=== PATIENT | female | born 1970 | race Caucasian/White ===

== ENCOUNTER 2016-03-13 06:32 | Inpatient (IN) | payer OTHER ==
[~2016-03-13] VITALS: Ht 147.3 cm; Wt 68.4 kg
[~2016-03-13 06:32] MED LIST: AMBIEN5 M1 PO; ATIVAN0.5 MG PO; ATIVAN1 MG PO; ATROVENT 00.5 MG/2.5 IH; BP PO; BREO ELLIPTA I1 EACH IH; DELTASONE20 M1 PO; DOXYCYCLINE HY100 M3 PO; DUONEB 2.5-0.5 M3 ML IH; FLEXERIL10 MG PO; HYDROCHLOROTHIA25 MG PO; KLONOPIN2 MG PO; LEVOFLOXACIN750 MG PO; LISINOPRIL10 MG PO; MOTRIN800 MG PO; NICOTINE PATCH1 EAC2 TD; PERCOCET 10-321 EACH PO; PERCOCET 10/1 TABLET PO; PREDNISONE10 M1 PO; PREDNISONE10 M2 PO; PREDNISONE20 MG PO; PROAIR HFA8.5 GM IH; SPIRIVA RESPIMAT4 GM IH; SPIRIVA1 INHALATI IH; ZITHROMAX500 MG PO
[2016-03-13 07:31] LABS: MCH 30.9 PG (29.0-34.0); MCHC 32.2 G/DL (30.0-36.0); MCV 95.7 FL (83-99); MEAN PLAT.VOLUME 10.8 uM^3 (9.5-12.4); PLATELET COUNT 172 K/uL (156-360); RBC DIS.WIDTH-CV 14.3 % (11.8-14.6); RBC DIS.WIDTH-SD 48.4 % (39-53); WHITE BLOOD COUNT 10.5 K/uL (4.1-10.2)
[2016-03-13 08:13] LABS: ANION GAP 6 MEQ/L (2-14); CHLORIDE 99 MEQ/L (99-109); GFR ESTIMATE (CALCULATED) > 59 mL/min/; GLUCOSE 112 mg/dL (70-99); POTASSIUM 4.1 MEQ/L (3.7-5.4); SAMPLE HEMOLYSIS CHECK 0; SAMPLE ICTERIC CHECK 0; SAMPLE LIPEMIA CHECK 0; SODIUM 142 MEQ/L (136-147); UREA NITROGEN (BUN) 12 mg/dL (9-23)
[2016-03-13 08:14] LABS: TROP-I INTERPRETATION NEGATIVE; TROPONIN-I < 0.01 ng/mL (0.0-0.30)
[2016-03-13] MEDS ORDERED: SPIRIVA1 INHALATI IH (10:37)
[2016-03-13] MEDS ORDERED: OXYCODONE HCL30 MG PO (10:38)
[2016-03-13] MEDS ORDERED: DUONEB 2.5-0.5 M3 ML AEROSOL (10:39)
[2016-03-13 13:09] VITALS: BP 131/75
[2016-03-13 21:10] VITALS: BP 139/77
[2016-03-14] VITALS: BP 127/76
[2016-03-14 05:54] LABS: MCH 30.3 PG (29.0-34.0); MCHC 31.4 G/DL (30.0-36.0); MCV 96.6 FL (83-99); MEAN PLAT.VOLUME 10.3 uM^3 (9.5-12.4); PLATELET COUNT 180 K/uL (156-360); RBC DIS.WIDTH-CV 14.2 % (11.8-14.6); RBC DIS.WIDTH-SD 50.3 % (39-53); RED BLOOD COUNT 4.45 M/uL (3.80-5.20)
[2016-03-14 06:21] LABS: ANION GAP 9 MEQ/L (2-14); CHLORIDE 100 MEQ/L (99-109); GFR ESTIMATE (CALCULATED) > 59 mL/min/; GLUCOSE 118 mg/dL (70-99); POTASSIUM 3.9 MEQ/L (3.7-5.4); SAMPLE HEMOLYSIS CHECK 0; SAMPLE ICTERIC CHECK 0; SAMPLE LIPEMIA CHECK 0; SODIUM 142 MEQ/L (136-147); UREA NITROGEN (BUN) 14 mg/dL (9-23)
[2016-03-14 08:38] VITALS: BP 119/71
[2016-03-14 12:03] VITALS: BP 114/72
[2016-03-14 16:03] VITALS: BP 123/81
[2016-03-14 20:09] VITALS: BP 135/85
[2016-03-15] VITALS (7 sets, daily range): BP systolic 120–140; BP diastolic 61–82
[2016-03-15 07:28] LABS: EOSINOPHIL (%) 0 % (0-5); HEMATOCRIT 44.8 % (36.0-46.0); IMMATURE GRANULOCYTE (%) 0.3 % (0.0-0.7); LYMPHOCYTE COUNT 0.7 K/uL (1.0-2.8); MCH 31.5 PG (29.0-34.0); MCHC 32.4 G/DL (30.0-36.0); MCV 97.2 FL (83-99); MEAN PLAT.VOLUME 10.5 uM^3 (9.5-12.4); MONOCYTE (%) 4.2 % (3-12); MONOCYTE COUNT 0.5 K/uL (0-0.8); NEUTROPHIL (%) 90.1 % (45-76); PLATELET COUNT 194 K/uL (156-360); RBC DIS.WIDTH-CV 14.1 % (11.8-14.6); RBC DIS.WIDTH-SD 50.6 % (39-53); RED BLOOD COUNT 4.61 M/uL (3.80-5.20)
[2016-03-15 07:30] LABS: WHITE BLOOD COUNT 12.2 K/uL (4.1-10.2)
[2016-03-15 07:54] LABS: ANION GAP 9 MEQ/L (2-14); CHLORIDE 102 MEQ/L (99-109); GFR ESTIMATE (CALCULATED) > 59 mL/min/; SAMPLE HEMOLYSIS CHECK 1; SAMPLE ICTERIC CHECK 0; SAMPLE LIPEMIA CHECK 0; SODIUM 141 MEQ/L (136-147); UREA NITROGEN (BUN) 14 mg/dL (9-23)
[2016-03-15 08:02] LABS: GLUCOSE 183 mg/dL (70-99)
[2016-03-16 04:15] VITALS: BP 127/75
[2016-03-16 07:23] LABS: EOSINOPHIL (%) 0 % (0-5); HEMATOCRIT 45.6 % (36.0-46.0); IMMATURE GRANULOCYTE (%) 0.2 % (0.0-0.7); LYMPHOCYTE COUNT 0.4 K/uL (1.0-2.8); MCH 31.1 PG (29.0-34.0); MCHC 31.6 G/DL (30.0-36.0); MCV 98.5 FL (83-99); MONOCYTE COUNT 0.6 K/uL (0-0.8); NEUTROPHIL (%) 91.4 % (45-76); NEUTROPHIL COUNT 10.1 K/uL (1.8-6.4); PLATELET COUNT 185 K/uL (156-360); RBC DIS.WIDTH-CV 14.3 % (11.8-14.6); RBC DIS.WIDTH-SD 51.6 % (39-53); RED BLOOD COUNT 4.63 M/uL (3.80-5.20); WHITE BLOOD COUNT 11.1 K/uL (4.1-10.2)
[2016-03-16 08:28] VITALS: BP 142/82
[2016-03-16] MEDS ORDERED: AUGMENTIN875 MG PO (12:52)
[2016-03-16] MEDS ORDERED: PREDNISONE10 MG PO (12:52)
[2016-03-16 13:00] VITALS: BP 138/79
== END 2016-03-16 16:00 | disposition home or self-care (01) | DRG 190 ==
LOC: EME 06:32 → 5WEST 10:49 → EDOF 10:49 → 5WEST 12:35
PROVIDERS: Emergency Medicine; Family Medicine
DX: J44.0 Chronic obstructive pulmonary disease with (acute) lower respiratory infection (principal); J20.9 Acute bronchitis, unspecified; J44.1 Chronic obstructive pulmonary disease with (acute) exacerbation; J96.01 Acute respiratory failure with hypoxia; J96.02 Acute respiratory failure with hypercapnia; J98.11 Atelectasis; Z99.81 Dependence on supplemental oxygen; I10 Essential (primary) hypertension; F17.200 Nicotine dependence, unspecified, uncomplicated; E66.9 Obesity, unspecified; Z68.31 Body mass index [BMI] 31.0-31.9, adult
CPT/HCPCS: 71020; 71275; 80048; 83605; 83880; 84484; 85025; 85027; 85379; 87040; 87077; 87186; 87801; 93005; 94640; 94640 76; 94799; 99202; 99281; 99285; G0008; G0378; J0456; J0696; J1100; J1650; J2930; J7030; J7050

== ENCOUNTER 2017-04-29 04:10 | Inpatient (IN) | payer OTHER ==
[~2017-04-29] VITALS: Ht 147.3 cm; Wt 88.7 kg
[~2017-04-29 04:10] MED LIST changes: +AUGMENTIN875 MG PO; +DUONEB 2.5-0.5 M3 ML AEROSOL; +OXYCODONE HCL30 MG PO; +PREDNISONE10 MG PO
[2017-04-29 05:41] LABS: CHLORIDE 102 mEq/L (99-109); POTASSIUM 3.5 mEq/L (3.7-5.4); SODIUM 141 mEq/L (136-147)
[2017-04-29 05:43] LABS: GLUCOSE 194 mg/dL (70-99); TOTAL PROTEIN 6.9 g/dL (6.4-8.3)
[2017-04-29 05:44] LABS: HEMATOCRIT 41.1 % (36.0-46.0); HEMOGLOBIN 13.8 G/DL (11.9-15.5); MCH 30.1 PG (29.0-34.0); MCHC 33.6 G/DL (30.0-36.0); MCV 89.5 FL (83-99); PLATELET COUNT 331 K/uL (156-360); RBC DIS.WIDTH-CV 12.6 % (11.8-14.6); RBC DIS.WIDTH-SD 41.5 % (39-53); RED BLOOD COUNT 4.59 M/uL (3.80-5.20); WHITE BLOOD COUNT 15.1 K/uL (4.1-10.2)
[2017-04-29 05:45] LABS: TOTAL BILIRUBIN 0.3 mg/dL (0.0-1.0)
[2017-04-29 05:47] LABS: ALKALINE PHOSPHATASE 115 IU/L (3-129); CREATININE 0.7 mg/dL (0.6-1.3); GFR ESTIMATE (CALCULATED) > 59 mL/min/
[2017-04-29 05:48] LABS: AST (GOT) 13 IU/L (2-34); UREA NITROGEN (BUN) 9 mg/dL (9-23)
[2017-04-29 05:50] LABS: ALT (GPT) 15 IU/L (3-49)
[2017-04-29 05:51] LABS: TROP-I INTERPRETATION NEGATIVE; TROPONIN-I 0.02 ng/mL (0.0-0.30)
[2017-04-29 11:10] VITALS: BP 137/74
[2017-04-29 16:51] VITALS: BP 139/76
[2017-04-29 19:50] VITALS: BP 136/77
[2017-04-30 00:03] VITALS: BP 143/78
[2017-04-30 05:12] LABS: BASOPHIL (%) 0.1 % (0-1); EOSINOPHIL (%) 0 % (0-5); HEMATOCRIT 37.5 % (36.0-46.0); HEMOGLOBIN 12.3 G/DL (11.9-15.5); LYMPHOCYTE (%) 4.8 % (15-42); LYMPHOCYTE COUNT 0.8 K/uL (1.0-2.8); MCH 29.3 PG (29.0-34.0); MCHC 32.8 G/DL (30.0-36.0); MCV 89.3 FL (83-99); MONOCYTE (%) 3.1 % (3-12); MONOCYTE COUNT 0.5 K/uL (0-0.8); NEUTROPHIL COUNT 14.2 K/uL (1.8-6.4); PLATELET COUNT 342 K/uL (156-360); RBC DIS.WIDTH-CV 12.7 % (11.8-14.6); RBC DIS.WIDTH-SD 41.2 % (39-53); WHITE BLOOD COUNT 15.8 K/uL (4.1-10.2)
[2017-04-30 05:32] LABS: CHLORIDE 103 MEQ/L (99-109); CREATININE 0.8 MG/DL (0.6-1.3); GFR ESTIMATE (CALCULATED) > 59 mL/min/; GLUCOSE 265 mg/dL (70-99); POTASSIUM 3.4 MEQ/L (3.7-5.4); SODIUM 141 MEQ/L (136-147); UREA NITROGEN (BUN) 17 mg/dL (9-23)
[2017-04-30 08:29] VITALS: BP 137/64
[2017-04-30 16:17] VITALS: BP 138/69
[2017-05-01 00:17] VITALS: BP 160/86
[2017-05-01 06:28] LABS: BASOPHIL (%) 0.1 % (0-1); EOSINOPHIL (%) 0 % (0-5); HEMOGLOBIN 12.7 G/DL (11.9-15.5); IMMATURE GRANULOCYTE (%) 1.7 % (0.0-0.7); LYMPHOCYTE (%) 3.9 % (15-42); LYMPHOCYTE COUNT 0.9 K/uL (1.0-2.8); MCHC 32.6 G/DL (30.0-36.0); MONOCYTE (%) 2.4 % (3-12); MONOCYTE COUNT 0.5 K/uL (0-0.8); NEUTROPHIL (%) 91.9 % (45-76); NEUTROPHIL COUNT 20.4 K/uL (1.8-6.4); PLATELET COUNT 332 K/uL (156-360); RBC DIS.WIDTH-CV 13.2 % (11.8-14.6); RBC DIS.WIDTH-SD 43.8 % (39-53); RED BLOOD COUNT 4.24 M/uL (3.80-5.20); WHITE BLOOD COUNT 22.2 K/uL (4.1-10.2)
[2017-05-01 07:00] VITALS: BP 139/87
[2017-05-01 07:02] LABS: CHLORIDE 103 MEQ/L (99-109); CREATININE 0.6 MG/DL (0.6-1.3); GFR ESTIMATE (CALCULATED) > 59 mL/min/; GLUCOSE 177 mg/dL (70-99); SODIUM 140 MEQ/L (136-147); UREA NITROGEN (BUN) 17 mg/dL (9-23)
[2017-05-01 07:12] LABS: POTASSIUM 4.1 MEQ/L (3.7-5.4)
[2017-05-01 15:44] VITALS: BP 142/82
[2017-05-01 23:00] VITALS: BP 165/86
[2017-05-02 05:55] LABS: BASOPHIL (%) 0.2 % (0-1); EOSINOPHIL (%) 0 % (0-5); HEMATOCRIT 38.6 % (36.0-46.0); HEMOGLOBIN 12.4 G/DL (11.9-15.5); IMMATURE GRANULOCYTE (%) 1.5 % (0.0-0.7); LYMPHOCYTE (%) 10.4 % (15-42); LYMPHOCYTE COUNT 1.9 K/uL (1.0-2.8); MCH 29.3 PG (29.0-34.0); MCHC 32.1 G/DL (30.0-36.0); MCV 91.3 FL (83-99); MONOCYTE (%) 6.5 % (3-12); MONOCYTE COUNT 1.2 K/uL (0-0.8); NEUTROPHIL (%) 81.4 % (45-76); NEUTROPHIL COUNT 15.3 K/uL (1.8-6.4); PLATELET COUNT 284 K/uL (156-360); RBC DIS.WIDTH-CV 12.9 % (11.8-14.6); RBC DIS.WIDTH-SD 42.7 % (39-53); RED BLOOD COUNT 4.23 M/uL (3.80-5.20); WHITE BLOOD COUNT 18.7 K/uL (4.1-10.2)
[2017-05-02 06:23] LABS: CHLORIDE 103 MEQ/L (99-109); CREATININE 0.7 MG/DL (0.6-1.3); GFR ESTIMATE (CALCULATED) > 59 mL/min/; POTASSIUM 3.6 MEQ/L (3.7-5.4); SODIUM 139 MEQ/L (136-147); UREA NITROGEN (BUN) 21 mg/dL (9-23)
[2017-05-02 06:24] LABS: GLUCOSE 111 mg/dL (70-99)
[2017-05-02 06:31] VITALS: BP 142/85
[2017-05-02 07:12] VITALS: BP 133/76
[2017-05-02 11:22] VITALS: BP 142/74
[2017-05-02] MEDS ORDERED: LEVAQUIN750 MG PO (12:50)
[2017-05-02] MEDS ORDERED: PREDNISONE10 MG PO (12:50)
== END 2017-05-02 14:09 | disposition home or self-care (01) | DRG 194 ==
LOC: EME → EDBD 04:10 → EDOF 07:25 → 4SOUTH 07:25 → ENRESERV 07:46 → 4SOUTH 10:55 → ENRESERV 05-02 04:46 → 3EAST 05-02 06:13
PROVIDERS: Family Medicine; Physician Assistant
DX: J18.9 Pneumonia, unspecified organism (principal); J44.0 Chronic obstructive pulmonary disease with (acute) lower respiratory infection; J44.1 Chronic obstructive pulmonary disease with (acute) exacerbation; J96.10 Chronic respiratory failure, unspecified whether with hypoxia or hypercapnia; R73.9 Hyperglycemia, unspecified; T38.0X5A Adverse effect of glucocorticoids and synthetic analogues, initial encounter; I10 Essential (primary) hypertension; F32.9 Major depressive disorder, single episode, unspecified; E66.9 Obesity, unspecified; G89.29 Other chronic pain; Z87.891 Personal history of nicotine dependence; Z79.891 Long term (current) use of opiate analgesic; Z99.81 Dependence on supplemental oxygen; Z68.41 Body mass index [BMI] 40.0-44.9, adult
CPT/HCPCS: 71046; 71260; 80048; 80053; 83880; 84484; 85025; 85027; 93005; 94640; 94640 76; 94760; 94799; 99202; 99281; 99285; J1650; J1956; J2270; J2930; J7512; J7644

== ENCOUNTER 2017-07-28 19:48 | Observation (INO) | payer OTHER ==
[~2017-07-28] VITALS: Ht 147.3 cm; Wt 92.0 kg
[~2017-07-28 19:48] MED LIST changes: +LEVAQUIN750 MG PO
[2017-07-28 21:00] LABS: HEMATOCRIT 39.5 % (36.0-46.0); HEMOGLOBIN 13.4 G/DL (11.9-15.5); MCH 30.6 PG (29.0-34.0); MCHC 33.9 G/DL (30.0-36.0); MCV 90.2 FL (83-99); PLATELET COUNT 271 K/uL (156-360); RBC DIS.WIDTH-CV 12.3 % (11.8-14.6); RBC DIS.WIDTH-SD 40.6 % (39-53); RED BLOOD COUNT 4.38 M/uL (3.80-5.20); WHITE BLOOD COUNT 9.9 K/uL (4.1-10.2)
[2017-07-28 21:09] LABS: CHLORIDE 107 mEq/L (99-109); POTASSIUM 3.8 mEq/L (3.7-5.4); SODIUM 143 mEq/L (136-147)
[2017-07-28 21:11] LABS: GLUCOSE 97 mg/dL (70-99)
[2017-07-28 21:15] LABS: CREATININE 0.6 mg/dL (0.6-1.3); GFR ESTIMATE (CALCULATED) > 59 mL/min/; UREA NITROGEN (BUN) 11 mg/dL (9-23)
[2017-07-28 21:21] LABS: TROP-I INTERPRETATION NEGATIVE; TROPONIN-I < 0.01 ng/mL (0.0-0.30)
[2017-07-29 00:11] LABS: BASE EXCESS -0.2 mEq/L (-3 to +3); BICARBONATE 24.8 mEq/L (22-26); CARBOXY HGB 1.9 % (0-5); PO2 65 mm Hg (80-100); pH 7.39 (7.35-7.45)
[2017-07-29 00:12] LABS: COMMENTS - BLOOD GASES A+C+; FI02 21 %; PCO2 41 mm Hg (35-45); SITE RR; TOTAL RESP RATE 20 resp/min
[2017-07-29] MEDS ORDERED: HYDROCHLOROTHIA25 MG PO (00:19)
[2017-07-29 05:23] VITALS: BP 151/67
[2017-07-29 08:00] VITALS: BP 141/75
[2017-07-29 11:18] VITALS: BP 184/89
[2017-07-29 15:29] VITALS: BP 122/63
[2017-07-29 20:21] VITALS: BP 133/70
[2017-07-30 00:37] VITALS: BP 130/73
[2017-07-30 05:32] LABS: BASOPHIL (%) 0.1 % (0-1); EOSINOPHIL (%) 0.2 % (0-5); HEMATOCRIT 41.3 % (36.0-46.0); HEMOGLOBIN 13.7 G/DL (11.9-15.5); IMMATURE GRANULOCYTE (%) 1.1 % (0.0-0.7); LYMPHOCYTE (%) 2.9 % (15-42); LYMPHOCYTE COUNT 0.7 K/uL (1.0-2.8); MCH 30.3 PG (29.0-34.0); MCHC 33.2 G/DL (30.0-36.0); MCV 91.4 FL (83-99); MONOCYTE (%) 2.3 % (3-12); MONOCYTE COUNT 0.5 K/uL (0-0.8); NEUTROPHIL (%) 93.4 % (45-76); NEUTROPHIL COUNT 21.5 K/uL (1.8-6.4); PLATELET COUNT 293 K/uL (156-360); RBC DIS.WIDTH-CV 12.8 % (11.8-14.6); RBC DIS.WIDTH-SD 41.6 % (39-53); RED BLOOD COUNT 4.52 M/uL (3.80-5.20)
[2017-07-30 05:57] LABS: CHLORIDE 99 MEQ/L (99-109); CREATININE 0.7 MG/DL (0.6-1.3); GFR ESTIMATE (CALCULATED) > 59 mL/min/; SODIUM 140 MEQ/L (136-147); UREA NITROGEN (BUN) 15 mg/dL (9-23)
[2017-07-30 05:58] LABS: GLUCOSE 152 mg/dL (70-99)
[2017-07-30 07:50] VITALS: BP 132/69
[2017-07-30 11:59] VITALS: BP 100/59
[2017-07-30] MEDS ORDERED: PREDNISONE10 MG PO (12:37)
[2017-07-30] MEDS ORDERED: LEVOFLOXACIN500 MG PO (12:37)
== END 2017-07-30 14:10 | disposition home or self-care (01) ==
LOC: EME 19:48 → 4SOUTH 07-29 02:45 → EDOF 07-29 02:45 → ENRESERV 07-29 03:49 → 4SOUTH 07-29 05:13
PROVIDERS: Emergency Medicine; Family Medicine
DX: J44.1 Chronic obstructive pulmonary disease with (acute) exacerbation (principal); R09.02 Hypoxemia; Z87.891 Personal history of nicotine dependence; I10 Essential (primary) hypertension; G89.29 Other chronic pain
CPT/HCPCS: 36600; 71046; 71275; 80048; 82803; 84484; 85025; 85027; 87641; 93005; 94640; 94640 76; 94799; 99202; 99281; 99285; G0378; J1956; J2930; J3475; J7030